=== PATIENT | female | born 1940 | race Native Hawaiian/Other Pacific Islander ===

== ENCOUNTER 2018-09-01 21:44 | Inpatient (IN) | payer OTHER ==
[~2018-09-01] VITALS: Ht 167.6 cm; Wt 61.2 kg
[~2018-09-01 21:44] MED LIST: AMLO5TAB9 PO; BENAZIPRIL; GLIM2TAB2 PO; LEVO500T2 PO
[2018-09-01] MEDS ORDERED: IV NORMAL SALINE 500 ML BAG IV ONE (22:15)
[2018-09-01] MEDS ORDERED: PANTOPRAZOLE SODIUM 40 MG VIAL IV ONE (22:15)
[2018-09-01] MEDS ORDERED: ONDANSETRON 4 MG/2 ML VIAL IV ONE (22:15)
[2018-09-01] MEDS ORDERED: ONDANSETRON 4 MG/2 ML VIAL ONE (22:16)
[2018-09-01] MEDS ORDERED: PANTOPRAZOLE SODIUM 40 MG VIAL ONE (22:16)
[2018-09-01 22:28] LABS: BASOPHILS % (AUTO) 0.2 % (0.0-2.0); EOSINOPHILS # (AUTO) 0.1 K/uL (0.0-0.7); EOSINOPHILS % (AUTO) 0.6 % (0.0-7.0); HEMATOCRIT 38.6 % (31.2-41.9); LYMPHOCYTES # (AUTO) 1.1 K/uL (20.0-40.0); LYMPHOCYTES % (AUTO) 13.1 % (20.5-51.5); MEAN CORPUSCULAR HEMOGLOBIN 34.4 uug (24.7-32.8); MEAN CORPUSCULAR HGB CONC 36 g/dL (32.3-35.6); MEAN CORPUSCULAR VOLUME 94.8 fL (75.5-95.3); MONOCYTES # (AUTO) 0.4 K/uL (2.0-10.0); NEUTROPHILS # (AUTO) 7.1 K/uL (1.8-8.9); NEUTROPHILS % (AUTO) 81.1 % (38.5-71.5); PLATELET COUNT (AUTO) 176 K/uL (179-408); RED BLOOD CELL COUNT(AUTO) 4.07 MIL/uL (3.63-4.92); WHITE BLOOD COUNT (AUTO) 8.7 K/uL (3.8-11.8)
[2018-09-01 22:40] LABS: CARBON DIOXIDE 24 mmol/L (21-32); CHLORIDE 83 mmol/L (98-107); GLUCOSE 166 mg/dL (74-106); POTASSIUM 3.7 mmol/L (3.5-5.1); UREA NITROGEN, BLOOD 22 mg/dL (7-18)
[2018-09-01 22:45] LABS: ALANINE AMINOTRANSFERASE 32 U/L (14-59); ALKALINE PHOSPHATASE 124 U/L (50-136); ASPARTATE AMINOTRANSFERASE 30 U/L (15-37); BILIRUBIN,DIRECT 0.3 mg/dL (0.0-0.2); TOTAL PROTEIN, SERUM 8.7 g/dL (6.4-8.2)
[2018-09-01] MEDS ORDERED: SODIUM CHLORIDE 3% IV ONE (23:00)
[2018-09-01] MEDS ORDERED: FOLI0.8T2 PO (23:05)
[2018-09-01] MEDS ORDERED: GLIP5TAB13 PO (23:05)
[2018-09-01] MEDS ORDERED: ALLO100T PO (23:05)
[2018-09-01] MEDS ORDERED: SIMV10TA6 PO (23:05)
[2018-09-01] MEDS ORDERED: TELM40TA2 PO (23:05)
[2018-09-01] MEDS ORDERED: AZEL6DRO5 EACHEYE (23:05)
[2018-09-02] VITALS (7 sets, daily range): BP systolic 93–147; BP diastolic 38–71
[2018-09-02] MEDS ORDERED: HYDROCODONE/APAP 5-325MG TABLET PO PRN (03:00)
[2018-09-02] MEDS ORDERED: HOME MED MISCELLANEOUS XX SCH (03:00)
[2018-09-02] MEDS ORDERED: ACETAMINOPHEN 325 MG TABLET PO PRN (03:00)
[2018-09-02] MEDS ORDERED: ZOLPIDEM 5 MG TABLET PO PRN (03:00)
[2018-09-02] MEDS ORDERED: ONDANSETRON 4 MG/2 ML VIAL IV PRN (03:00)
[2018-09-02] MEDS ORDERED: ALLOPURINOL 100 MG TABLET PO PRN (03:00)
[2018-09-02] MEDS ORDERED: MAGNESIUM HYDROXIDE 30 ML LIQUID UDC PO PRN (03:00)
[2018-09-02] MEDS ORDERED: Z GUARD REMEDY PASTE 57 GM TUBE TOP PRN (03:00)
[2018-09-02 04:20] LABS: CARBON DIOXIDE 25 mmol/L (21-32); CHLORIDE 91 mmol/L (98-107); GLUCOSE 117 mg/dL (74-106); POTASSIUM 4.2 mmol/L (3.5-5.1); UREA NITROGEN, BLOOD 18 mg/dL (7-18)
[2018-09-02] MEDS: FOLIC ACID/VITAMIN B COMP W-C TABLET PO SCH (08:24)
[2018-09-02] MEDS: glipiZIDE 5 MG TABLET PO SCH (08:24)
[2018-09-02] MEDS: AMLODIPINE 5 MG TABLET PO SCH (08:24)
[2018-09-02 10:13] LABS: THYROID STIMULATING HORMONE 1.442 mIU/mL (0.358-3.740)
[2018-09-02 10:21] LABS: URIC ACID 5.7 mg/dL (2.6-6.0)
[2018-09-02 10:22] LABS: CARBON DIOXIDE 24 mmol/L (21-32); CHLORIDE 90 mmol/L (98-107); CREATININE 1.1 mg/dL (0.6-1.3); GLUCOSE 107 mg/dL (74-106); POTASSIUM 3.8 mmol/L (3.5-5.1); UREA NITROGEN, BLOOD 19 mg/dL (7-18)
[2018-09-02 16:19] LABS: CARBON DIOXIDE 26 mmol/L (21-32); CHLORIDE 90 mmol/L (98-107); CREATININE 1.1 mg/dL (0.6-1.3); GLUCOSE 121 mg/dL (74-106); POTASSIUM 4.4 mmol/L (3.5-5.1); UREA NITROGEN, BLOOD 22 mg/dL (7-18)
[2018-09-02 19:48] LABS: CARBON DIOXIDE 23 mmol/L (21-32); CHLORIDE 91 mmol/L (98-107); CREATININE 1.2 mg/dL (0.6-1.3); GLUCOSE 173 mg/dL (74-106); POTASSIUM 4.2 mmol/L (3.5-5.1); UREA NITROGEN, BLOOD 26 mg/dL (7-18)
[2018-09-02] MEDS ORDERED: IV NS 1000 ML 500 ML IV ONE (20:15)
[2018-09-02] MEDS ORDERED: SIMVASTATIN 10 MG TABLET PO SCH (21:00)
[2018-09-03 03:22] VITALS: BP 110/42
[2018-09-03] MEDS: glipiZIDE 5 MG TABLET PO SCH (07:13)
[2018-09-03 07:29] LABS: BASOPHILS % (AUTO) 0.2 % (0.0-2.0); EOSINOPHILS % (AUTO) 0.5 % (0.0-7.0); HEMATOCRIT 36.9 % (31.2-41.9); HEMOGLOBIN 13.5 g/dL (10.9-14.3); LYMPHOCYTES # (AUTO) 1.2 K/uL (20.0-40.0); LYMPHOCYTES % (AUTO) 19.1 % (20.5-51.5); MEAN CORPUSCULAR HEMOGLOBIN 34.7 uug (24.7-32.8); MEAN CORPUSCULAR HGB CONC 36 g/dL (32.3-35.6); MEAN CORPUSCULAR VOLUME 95.2 fL (75.5-95.3); MONOCYTES # (AUTO) 0.4 K/uL (2.0-10.0); MONOCYTES % (AUTO) 7.3 % (0.0-11.0); NEUTROPHILS # (AUTO) 4.5 K/uL (1.8-8.9); NEUTROPHILS % (AUTO) 72.9 % (38.5-71.5); PLATELET COUNT (AUTO) 204 K/uL (179-408); RED BLOOD CELL COUNT(AUTO) 3.88 MIL/uL (3.63-4.92); WHITE BLOOD COUNT (AUTO) 6.1 K/uL (3.8-11.8)
[2018-09-03 07:48] LABS: ALANINE AMINOTRANSFERASE 29 U/L (14-59); ALKALINE PHOSPHATASE 82 U/L (50-136); ASPARTATE AMINOTRANSFERASE 20 U/L (15-37); BILIRUBIN,TOTAL 0.6 mg/dL (0.2-1.0); CARBON DIOXIDE 27 mmol/L (21-32); CHLORIDE 98 mmol/L (98-107); CHOLESTEROL 157 mg/dL (<200); CREATININE 1.2 mg/dL (0.6-1.3); GLUCOSE 102 mg/dL (74-106); HDL CHOLESTEROL 86 mg/dL (40-60); MAGNESIUM 2.1 mg/dL (1.8-2.4); PHOSPHOROUS 2.8 mg/dL (2.5-4.9); POTASSIUM 4.1 mmol/L (3.5-5.1); TOTAL PROTEIN, SERUM 8.2 g/dL (6.4-8.2); TRIGLYCERIDES 72 MG/DL (30-150); UREA NITROGEN, BLOOD 22 mg/dL (7-18)
[2018-09-03 08:00] VITALS: BP 126/60
[2018-09-03] MEDS: FOLIC ACID/VITAMIN B COMP W-C TABLET PO SCH (08:43)
[2018-09-03] MEDS: AMLODIPINE 5 MG TABLET PO SCH (08:44)
[2018-09-03] MEDS ORDERED: LOSARTAN POTASSIUM 50 MG TABLET PO SCH (09:00)
[2018-09-03 12:00] VITALS: BP 111/57
[2018-09-03] MEDS ORDERED: IV NS 1000 ML 500 ML IV ONE (12:00)
[2018-09-03 16:00] VITALS: BP 112/55
[2018-09-03] MEDS ORDERED: EYE EACHEYE SCH (17:00)
[2018-09-03] MEDS ORDERED: AZELASTINE 0.05% EACHEYE SCH (17:00)
[2018-09-03 18:01] LABS: CARBON DIOXIDE 25 mmol/L (21-32); CHLORIDE 102 mmol/L (98-107); CREATININE 1.3 mg/dL (0.6-1.3); GLUCOSE 114 mg/dL (74-106); POTASSIUM 4.2 mmol/L (3.5-5.1); UREA NITROGEN, BLOOD 31 mg/dL (7-18)
[2018-09-04 09:07] LABS: A/G RATIO 1.1 (0.7-1.7); ALBUMIN 3.8 g/dL (2.9-4.4); ALPHA-1-GLOBULIN 0.2 g/dL (0.0-0.4); ALPHA-2-GLOBULIN 0.8 g/dL (0.4-1.0); GAMMA GLOBULIN 1.6 g/dL (0.4-1.8); GLOBULIN, TOTAL 3.6 g/dL (2.2-3.9); M-SPIKE Not Observed g/dL (Not Observed)
== END 2018-09-03 19:30 | disposition home or self-care (01) | DRG 426 ==
LOC: ER 21:44 → TELE-TD 09-02 01:01 → TELE 09-02 13:41
PROVIDERS: ADMIT Nurse Practitioner Acute Care; ATTEND Registered Nurse
DX: E87.1 Hypo-osmolality and hyponatremia (principal); E11.69 Type 2 diabetes mellitus with other specified complication; I11.9 Hypertensive heart disease without heart failure; E78.5 Hyperlipidemia, unspecified; Z79.899 Other long term (current) drug therapy; Z79.84 Long term (current) use of oral hypoglycemic drugs; Z90.49 Acquired absence of other specified parts of digestive tract; M10.9 Gout, unspecified; E87.70 Fluid overload, unspecified; R79.89 Other specified abnormal findings of blood chemistry; Z82.49 Family history of ischemic heart disease and other diseases of the circulatory system; I70.0 Atherosclerosis of aorta; R42 Dizziness and giddiness; T50.2X5A Adverse effect of carbonic-anhydrase inhibitors, benzothiadiazides and other diuretics, initial encounter; Y92.019 Unspecified place in single-family (private) house as the place of occurrence of the external cause
CPT/HCPCS: 36415; 70030-TC; 71045; 82533; 83735; 84100; 84155; 84165; 84300; 84443; 84550; 85025; 85730; 93005; A4663; C9113; G0378; J2405; J3490; J7030; J7040

== ENCOUNTER 2019-06-07 08:27 | Inpatient (IN) | payer OTHER ==
[~2019-06-07] VITALS: Ht 160 cm; Wt 54.4 kg
[~2019-06-07 08:27] MED LIST changes: +ALLO100T PO; +AZEL6DRO5 EACHEYE; -BENAZIPRIL; +FOLI0.8T2 PO; -GLIM2TAB2 PO; +GLIP5TAB13 PO; -LEVO500T2 PO; +SIMV10TA98 PO; +TELM40TA2 PO
--- NOTE | 2019-06-07 08:45 | NUR ---
Patient ambulated with stable gait. Speech clear, speaks in complete sentences. No acute neuro deficits. Patient came for c/o gen weakness, and for anxiety. Patient appears shaky, and tremulous noted more in upper extremities. Respiratory even and unlabored, no cough no sob. Denies any n/v/d. Patient in bed at lowest position, sr upx2, call light within reach. Fall precautions implemented per protocol.
[2019-06-07] MEDS ORDERED: ALPR0.5T8 PO (08:47)
[2019-06-07] MEDS ORDERED: OXYB5TAB16 PO (08:47)
[2019-06-07] MEDS ORDERED: IV NORMAL SALINE 1000 ML BAG IV ONE ×2 (09:00→09:45)
[2019-06-07 09:12] LABS: BASOPHILS % (AUTO) 0.3 % (0.0-2.0); EOSINOPHILS % (AUTO) 0.3 % (0.0-7.0); HEMATOCRIT 38.3 % (31.2-41.9); HEMOGLOBIN 13.4 g/dL (10.9-14.3); LYMPHOCYTES # (AUTO) 1.2 K/uL (20.0-40.0); LYMPHOCYTES % (AUTO) 12.8 % (20.5-51.5); MEAN CORPUSCULAR HEMOGLOBIN 33.8 uug (24.7-32.8); MEAN CORPUSCULAR HGB CONC 35 g/dL (32.3-35.6); MEAN CORPUSCULAR VOLUME 96.3 fL (75.5-95.3); MONOCYTES # (AUTO) 0.7 K/uL (2.0-10.0); MONOCYTES % (AUTO) 7.2 % (0.0-11.0); NEUTROPHILS # (AUTO) 7.7 K/uL (1.8-8.9); NEUTROPHILS % (AUTO) 79.4 % (38.5-71.5); PLATELET COUNT (AUTO) 262 K/uL (179-408); RED BLOOD CELL COUNT(AUTO) 3.97 MIL/uL (3.63-4.92); WHITE BLOOD COUNT (AUTO) 9.7 K/uL (3.8-11.8)
[2019-06-07 09:17] LABS: BILIRUBIN,DIRECT 0.2 mg/dL (0.0-0.2); BILIRUBIN,TOTAL 0.5 mg/dL (0.2-1.0); CREATININE 1.2 mg/dL (0.6-1.3); POTASSIUM 5.3 mmol/L (3.5-5.1); TOTAL PROTEIN, SERUM 8.7 g/dL (6.4-8.2)
[2019-06-07 10:07] LABS: *BILIRUBIN,URIN NEGATIVE (NEGATIVE); *CLARITY,URINE CLOUDY (CLEAR); *COLOR,URINE YELLOW (YELLOW); *KETONES,URINE NEGATIVE (NEGATIVE); *UROBILINOGEN,URINE 0.2 E.U./dl (NORMAL); LEUKOCYTE ESTERASE ,URINE 1+ (NEGATIVE); NITRITE, URINE NEGATIVE (NEGATIVE); UGLUCOSE NEGATIVE (NEGATIVE)
[2019-06-07 10:19] LABS: *BLOOD, URINE TRACE (NEGATIVE)
[2019-06-07 10:23] LABS: BACTERIA,URINE MANY /HPF (NONE SEEN)
[2019-06-07 10:24] LABS: MUCUS,URINE MODERATE /LPF (0-FEW); SQUAMOUS EPITHELIAL CELL,UR FEW /HPF (NONE SEEN)
[2019-06-07] MEDS ORDERED: CEFTRIAXONE /D5W 50ML IVPB **ER PYXIS IV ONE (10:35)
[2019-06-07] MEDS ORDERED: CEFTRIAXONE 1 G in IV DEXTROSE 5% 50 ML IV ONE (10:45)
--- NOTE | 2019-06-07 11:02 | NUR ---
Report given to JENNIFER Malagon.
--- NOTE | 2019-06-07 11:27 | NUR ---
Patient transported to TELE in stable condition.
[2019-06-07 11:43] VITALS: BP 148/71
--- NOTE | 2019-06-07 11:45 | NUR ---
RECEIVED PT FROM [facility] ER VIA [facility]. NO ACUTE DISTRESS OR SOB NOTED. PT AWAKE ALERT AND ORIENTED X3. PT SOMEWHAT ANXIOUS. MED RECON FINALIZED BY . BED LOCKED AND IN LOW POSITION. DEBRA;L LIGHT WITHIN REACH. ADMICCION PROCESS UNDERWAY. IV PATENT AND INTACT RIGHT WRIST 20. PT ON TELEMETRY MONITORING WITH SINUS RHYTHM. WILL CONTINUE TO MONITOR.
[2019-06-07] MEDS ORDERED: CEFTRIAXONE 1 G VIAL IM SCH (12:15)
[2019-06-07] MEDS: glipiZIDE 5 MG TABLET PO SCH (12:15)
[2019-06-07] MEDS ORDERED: ACETAMINOPHEN 325 MG TABLET PO PRN (12:15)
[2019-06-07] MEDS ORDERED: HYDROCODONE/APAP 5-325MG TABLET PO PRN (12:15)
[2019-06-07] MEDS ORDERED: ONDANSETRON 4 MG/2 ML VIAL IV PRN (12:15)
[2019-06-07] MEDS ORDERED: MAGNESIUM HYDROXIDE 30 ML LIQUID UDC PO PRN (12:15)
[2019-06-07] MEDS ORDERED: Z GUARD REMEDY PASTE 57 GM TUBE TOP PRN (12:15)
[2019-06-07] MEDS ORDERED: ZOLPIDEM 5 MG TABLET PO PRN (12:15)
[2019-06-07] MEDS: IV NS 1000 ML 1,000 ML IV SCH ×2 (12:28→20:46)
[2019-06-07] MEDS: CEFTRIAXONE 1 G in IV DEXTROSE 5% 50 ML IV SCH (12:52)
[2019-06-07] MEDS: ALLOPURINOL 100 MG TABLET PO SCH (12:53)
[2019-06-07] MEDS: OXYBUTYNIN CHLORIDE 5 MG TABLET PO SCH (12:53)
[2019-06-07] MEDS: ENOXAPARIN SODIUM 40 MG/0.4 ML DISP.SYRIN SQ SCH (12:54)
[2019-06-07 16:00] VITALS: BP 133/60
[2019-06-07] MEDS: EYE EACHEYE SCH (17:22)
[2019-06-07] MEDS: AZELASTINE 0.05% EACHEYE SCH (17:22)
--- NOTE | 2019-06-07 18:00 | NUR ---
PT RESTING COMFORTABLY IN BED. NO ACUTE DISTRESS OR SOB NOTED. PT ALERT AND ORIENTED X3. PT IS DIET AND MEDICATION COMPLIANT. TELEMETRY MONITORING SHOWS SINUS RHYTHM. IVF RUNNING. SON JASPER AT BEDSIDE. PT DENIES PAIN. PT WEARS DIAPER INCONTINENCE OCCURS AT TIMES. PT ASKS TO BE ASSISTED TO BATHROOM. BED LOCKED IN AND IN LOW POSITION. CLL LIGHT WITHIN REACH. WILL GIVE REPORT ACCORDINGLY.
--- NOTE | 2019-06-07 19:45 | NUR ---
PATIENT ALERT ORIENTED, NO SOB NO CHEST PAIN, TELE MONITOR SINUS RYTHM AT THIS TIME. PATIENT HAS NO COMPLAIN OF PAIN AT THIS TIME. PATIENT ASSIST WITH TOILETING, KEPT COMFORTABLE.
[2019-06-07 20:16] VITALS: BP 133/60
[2019-06-07] MEDS: ALPRAZOLAM 0.5 MG TABLET PO PRN (20:33)
[2019-06-07] MEDS: SIMVASTATIN 10 MG TABLET PO SCH (20:33)
[2019-06-08 00:12] VITALS: BP 125/72
--- NOTE | 2019-06-08 03:00 | NUR ---
PATIENT HAS EPISODE OF V TACHYCARDIA 4 BEATS ONLY, BUT NOT SUSTAINABLE. PATIENT ALERT ORIENTED, ASYMPTOMATIC, CONT TO MONITOR.
[2019-06-08] MEDS: IV NS 1000 ML 1,000 ML IV SCH ×3 (04:45→21:17)
[2019-06-08 04:56] VITALS: BP 132/67
[2019-06-08 06:09] LABS: BASOPHILS % (AUTO) 0.4 % (0.0-2.0); EOSINOPHILS # (AUTO) 0.1 K/uL (0.0-0.7); EOSINOPHILS % (AUTO) 1.1 % (0.0-7.0); HEMATOCRIT 37.8 % (31.2-41.9); HEMOGLOBIN 13.2 g/dL (10.9-14.3); LYMPHOCYTES # (AUTO) 1.4 K/uL (20.0-40.0); LYMPHOCYTES % (AUTO) 19.6 % (20.5-51.5); MEAN CORPUSCULAR HEMOGLOBIN 35.1 uug (24.7-32.8); MEAN CORPUSCULAR HGB CONC 35 g/dL (32.3-35.6); MEAN CORPUSCULAR VOLUME 100.1 fL (75.5-95.3); MONOCYTES # (AUTO) 0.6 K/uL (2.0-10.0); NEUTROPHILS # (AUTO) 5.1 K/uL (1.8-8.9); NEUTROPHILS % (AUTO) 70.9 % (38.5-71.5); PLATELET COUNT (AUTO) 207 K/uL (179-408); RED BLOOD CELL COUNT(AUTO) 3.77 MIL/uL (3.63-4.92); WHITE BLOOD COUNT (AUTO) 7.3 K/uL (3.8-11.8)
--- NOTE | 2019-06-08 06:26 | NUR ---
PATIENT ALERT ORIENTED, NO SOB NO CHEST PAIN. PATIENT CONT ON TELE MONITOR SINUS RHYTHM AT THIS TIME. PATIENT WAS ASSISTED WITH TOILETING, KEPT CLEAN DRY AND COMFORTABLE, CONT TO MONITOR.
[2019-06-08 06:38] LABS: PHOSPHOROUS 2.5 mg/dL (2.5-4.9); POTASSIUM 4.4 mmol/L (3.5-5.1)
--- NOTE | 2019-06-08 08:00 | NUR ---
AWAKE ALERT AND ORIENTED X3 NO SS OF PAIN OR DISTRESS, EASILY GETS ANXIOUS. SR/ST ON MONITOR
[2019-06-08] MEDS: ALLOPURINOL 100 MG TABLET PO SCH (08:52)
[2019-06-08] MEDS: OXYBUTYNIN CHLORIDE 5 MG TABLET PO SCH (08:52)
[2019-06-08] MEDS: glipiZIDE 5 MG TABLET PO SCH (08:53)
[2019-06-08] MEDS: ENOXAPARIN SODIUM 40 MG/0.4 ML DISP.SYRIN SQ SCH (08:56)
[2019-06-08] MEDS: AZELASTINE 0.05% EACHEYE SCH ×2 (08:57→16:56)
[2019-06-08] MEDS: EYE EACHEYE SCH ×2 (08:57→16:56)
[2019-06-08] MEDS ORDERED: AMLODIPINE 5 MG TABLET PO SCH (09:00)
[2019-06-08 11:46] VITALS: BP 102/75
--- NOTE | 2019-06-08 12:00 | NUR ---
SON IN VERY SUPPORTIVE WITH CARE. NO ACUTE CHANGE
[2019-06-08] MEDS: CEFTRIAXONE 1 G in IV DEXTROSE 5% 50 ML IV SCH (12:10)
--- NOTE | 2019-06-08 14:00 | NUR ---
SEEN AND EXAMINED BY DR MUSA FOR CARDIOLOGY CONSULT SEE NOTES
[2019-06-08 15:44] VITALS: BP 137/69
[2019-06-08] MEDS: METOPROLOL SUCCINATE XL 25 MG TAB.SR.24H PO SCH (16:58)
--- NOTE | 2019-06-08 19:45 | NUR ---
PATIENT ALERT ORIENTED, ON TELE MONITOR SINUS RYTHM AT THIS TIME. PATIENT HAS NO SOB, NO CHEST PAIN. PATIENT ASSISTED WITH TOILETING, VOIDING WITH YELLOW COLOR URINE, PATIENT WEARS DIAPER FOR OVERACTIVE BLADDER. PATIENT HAS NO COMPLAIN OF PAIN, BUT HAS ANXIETY, REQUEST XANAX BEFORE BEDTIME. CONT TO MONITOR.
[2019-06-08] MEDS: ALPRAZOLAM 0.5 MG TABLET PO PRN (21:08)
[2019-06-08] MEDS: SIMVASTATIN 10 MG TABLET PO SCH (21:08)
[2019-06-08 21:11] VITALS: BP 151/81
[2019-06-09 00:44] VITALS: BP 149/76
[2019-06-09] MEDS: IV NS 1000 ML 1,000 ML IV SCH ×2 (05:15→12:17)
[2019-06-09 05:39] VITALS: BP 153/77
[2019-06-09 06:54] LABS: BASOPHILS % (AUTO) 0.2 % (0.0-2.0); EOSINOPHILS # (AUTO) 0.1 K/uL (0.0-0.7); EOSINOPHILS % (AUTO) 1.2 % (0.0-7.0); HEMATOCRIT 36.4 % (31.2-41.9); HEMOGLOBIN 12.7 g/dL (10.9-14.3); LYMPHOCYTES # (AUTO) 1.3 K/uL (20.0-40.0); LYMPHOCYTES % (AUTO) 16.4 % (20.5-51.5); MEAN CORPUSCULAR HEMOGLOBIN 34.5 uug (24.7-32.8); MEAN CORPUSCULAR HGB CONC 35 g/dL (32.3-35.6); MEAN CORPUSCULAR VOLUME 98.9 fL (75.5-95.3); MONOCYTES # (AUTO) 0.6 K/uL (2.0-10.0); MONOCYTES % (AUTO) 7.4 % (0.0-11.0); NEUTROPHILS # (AUTO) 5.8 K/uL (1.8-8.9); NEUTROPHILS % (AUTO) 74.8 % (38.5-71.5); PLATELET COUNT (AUTO) 218 K/uL (179-408); RED BLOOD CELL COUNT(AUTO) 3.68 MIL/uL (3.63-4.92); WHITE BLOOD COUNT (AUTO) 7.7 K/uL (3.8-11.8)
[2019-06-09 07:00] LABS: CARBON DIOXIDE 22 mmol/L (21-32); CHLORIDE 102 mmol/L (98-107); GLUCOSE 102 mg/dL (74-106); MAGNESIUM 1.9 mg/dL (1.8-2.4); PHOSPHOROUS 2.6 mg/dL (2.5-4.9); POTASSIUM 4.2 mmol/L (3.5-5.1); UREA NITROGEN, BLOOD 18 mg/dL (7-18)
[2019-06-09 07:11] LABS: THYROID STIMULATING HORMONE 2.207 mIU/mL (0.358-3.740)
--- NOTE | 2019-06-09 08:00 | NUR ---
AWAKE ALERT AND ORIENTED X3 STILL EASILY GETS ANXIOUS. NEEDS ATTENDED. LABS WNL, SR ON MONITOR
[2019-06-09] MEDS: OXYBUTYNIN CHLORIDE 5 MG TABLET PO SCH (08:23)
[2019-06-09] MEDS: AZELASTINE 0.05% EACHEYE SCH ×2 (08:23→17:07)
[2019-06-09] MEDS: EYE EACHEYE SCH ×2 (08:23→17:07)
[2019-06-09] MEDS: ALLOPURINOL 100 MG TABLET PO SCH (08:23)
[2019-06-09] MEDS: glipiZIDE 5 MG TABLET PO SCH (08:24)
[2019-06-09] MEDS: METOPROLOL SUCCINATE XL 25 MG TAB.SR.24H PO SCH (08:24)
[2019-06-09] MEDS: ENOXAPARIN SODIUM 40 MG/0.4 ML DISP.SYRIN SQ SCH (08:25)
--- NOTE | 2019-06-09 10:00 | NUR ---
SEEN BY HOSPITALIST AND GROCERY SPECIALIST FOR FOLLOW-UP, EXAMINED PATIENT AND BOTH AGREED WITH DISCHARGE PLANNING DIRECTOR INTEGRATED AWARE
[2019-06-09] MEDS ORDERED: AMLODIPINE 5 MG TABLET PO SCH (10:30)
[2019-06-09 11:30] VITALS: BP 148/69
--- NOTE | 2019-06-09 12:00 | NUR ---
AMBULATED AROUND THE HALLWAY, DENIES PAIN, SOB OR DIZZINESS. REMAINS SR ON MONITOR
[2019-06-09] MEDS: CEFTRIAXONE 1 G in IV DEXTROSE 5% 50 ML IV SCH (12:17)
[2019-06-09] MEDS ORDERED: ALPR0.25 PO (12:50)
[2019-06-09] MEDS ORDERED: TELM40TA2 PO (12:53)
[2019-06-09] MEDS ORDERED: METO-356 PO (14:14)
[2019-06-09] MEDS ORDERED: CEPH-570 PO (14:14)
--- NOTE | 2019-06-09 14:31 | NUR ---
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 MEDICATION AND FOLLOW-UP INSTRUCTION GIVEN
[2019-06-09 14:53] VITALS: BP 161/69
[2019-06-09] MEDS ORDERED: INFLUENZA VACCINE 2019-2020 0.5 ML DISP.SYRIN IM ONE (17:00)
--- NOTE | 2019-06-09 17:30 | NUR ---
PATIENT DISCHARGE VIA PRIVATE CAR WITH SON, DISCHARGE INSTRUCTION GIVEN AND PRESCRIBED MEDICATION GIVEN WITH MEDICATION EDUCATION AND EXPLANATIONS, NO S/S OF SOB NOTED. NO C/O PAIN AT THIS TIME. FLU VACCINE GIVEN TO PATIENT, PROVIDED EDUCATION . BELONGINGS ACCOUNTED FOE AND SIGNED, IV AND ID BAND REMOVED. CLEAN PATIENT AND KEPT DRY . QUESTIONS AND CONCERNS ADDRESSED.
== END 2019-06-09 17:30 | disposition home or self-care (01) | DRG 469 ==
LOC: ER 08:27 → TELE3 11:18 → MEDSURG3 06-09 16:05
PROVIDERS: ADMIT Hospitalist; ATTEND Hospitalist
DX: N17.9 Acute kidney failure, unspecified (principal); I47.2 Ventricular tachycardia; E87.5 Hyperkalemia; N30.01 Acute cystitis with hematuria; E11.9 Type 2 diabetes mellitus without complications; E87.1 Hypo-osmolality and hyponatremia; I08.2 Rheumatic disorders of both aortic and tricuspid valves; B96.20 Unspecified Escherichia coli [E. coli] as the cause of diseases classified elsewhere; E86.0 Dehydration; F41.9 Anxiety disorder, unspecified; E78.5 Hyperlipidemia, unspecified; I11.9 Hypertensive heart disease without heart failure; I70.0 Atherosclerosis of aorta; R32 Unspecified urinary incontinence; N32.81 Overactive bladder; Z82.49 Family history of ischemic heart disease and other diseases of the circulatory system
CPT/HCPCS: 36415; 70030-TC; 71045; 83605; 83690; 83735; 84100; 84443; 85025; 85730; 87077; 87086; 87400; 90686; 93005; 93307; A4663; G0378; J0696; J1650; J7030; J7060; J8499